=== PATIENT | female | born 1965 | race American Indian/Alaskan Native ===

== ENCOUNTER 2018-01-08 22:43 | Inpatient (IN) | payer SELFPAY ==
[2018-01-08] MEDS ORDERED: PROVENTIL IH ONE ×2 (23:39→23:53)
[2018-01-09 00:39] LABS: Basophils # (Auto) 0.1 K/mm3 (0.0-0.1); Eosinophils # (Auto) 0.2 K/mm3 (0.0-0.4); Eosinophils % (Auto) 2.6 % (0.0-4.3); Hematocrit 48.4 % (30.3-42.9); Hemoglobin 16.6 gm/dl (10.1-14.3); Lymphocytes # (Auto) 2.3 K/mm3 (1.2-5.4); Lymphocytes % (Auto) 28.4 % (13.4-35.0); Mean Corpuscular HGB Conc 34 % (30-34); Mean Corpuscular Hemoglobin 34 pg (28-32); Mean Corpuscular Volume 100 fl (79-97); Monocytes # (Auto) 0.4 K/mm3 (0.0-0.8); Monocytes % (Auto) 5.4 % (0.0-7.3); Red Blood Count 4.83 M/mm3 (3.65-5.03); Red Cell Distribution Width 14.3 % (13.2-15.2)
[2018-01-09] MEDS ORDERED: ATROVENT IH ONE (00:45)
[2018-01-09] MEDS ORDERED: PROVENTIL IH ONE ×2 (00:45→01:57)
[2018-01-09] MEDS ORDERED: DELTASONE PO ONE (00:46)
[2018-01-09 00:53] LABS: Platelet Count 172 K/mm3 (140-440)
--- NOTE | 2018-01-09 01:08 | Emergency Department Report ---
ED Shortness of Breath HPI - General Chief Complaint: Dyspnea/Respdistress Stated Complaint: SOB Time Seen by Provider: 01/09/18 00:35 Source: patient Mode of arrival: Ambulatory Limitations: No Limitations - History of Present Illness Initial Comments: 52-year-old female presents to the hospital complaining of cough productive cough intermittently wheezing or shortness of breath for the past 2 weeks. Patient denies underlying lung disorder such as asthma or COPD. History of bronchitis as a child. She smokes cigarettes on occasion. Patient is having a productive cough with sputum that is clear, brown, and bloody at times. She complains of anterior chest pain associated with coughing. No fever, calf tenderness or edema reported. Patient received albuterol 5 mg in the waiting wound with some improvement in her symptoms. - Related Data Allergies Allergy/AdvReac Type Severity Reaction Status Date / Time No Known Allergies Allergy Verified 01/09/18 00:00 ED Review of Systems ROS: Stated complaint: SOB Other details as noted in HPI Comment: All other systems reviewed and negative ED Past Medical Hx - Surgical History Additional Surgical History: Left Knee, C-sections X 2 - Social History Smoking Status: Current Every Day Smoker Substance Use Type: None ED Physical Exam - General Limitations: No Limitations - Other Other exam information: General: No limitations, patient is alert in no acute distress Head exam: Atraumatic, normocephalic Eyes exam: Normal appearance ENT: Moist mucous membrane, normal oropharynx Neck exam: Normal inspection, full range of motion, no meningismus nontender Respiratory exam: Bilateral expiratory wheezing, no tachypnea or accessory muscle use Cardiovascular: Mild tachycardia regular rhythm Abdomen: Soft, nondistended, and nontender, with normal bowel sounds, no rebound, or guarding Extremity: Full range of motion normal inspection no deformity, and is Back: Normal Inspection, full range of motion, no tenderness Neurologic: Alert, oriented x3, cranial nerves intact, no motor or sensory deficit Psychiatric: normal affect, normal mood Skin: Warm, dry, intact ED Course Vital Signs 01/08/18 01/08/18 01/09/18 22:43 23:40 00:34 Temperature 99.0 F 99 F 98.2 F Pulse Rate 121 H 116 H 103 H Pulse Rate [ Anterior Bilateral] Respiratory 18 16 18 Rate Respiratory Rate [Anterior Bilateral] Blood Pressure 151/109 151/109 Blood Pressure 115/87 [Left] O2 Sat by Pulse 97 97 95 Oximetry 01/09/18 01/09/18 01/09/18 00:40 01:54 02:08 Temperature Pulse Rate Pulse Rate [ 78 86 89 Anterior Bilateral] Respiratory Rate Respiratory 20 23 21 Rate [Anterior Bilateral] Blood Pressure Blood Pressure [Left] O2 Sat by Pulse Oximetry - Reevaluation(s) Reevaluation #1: 01/09/18 01:58 Patient received albuterol 2.5 mg in triage and addition of a 5 mg and Atrovent in the ED instead has actually worsening wheezing compared to initial auscultation. Patient also received prednisone 60 mg azithromycin by mouth. Will try magnesium and additional nebs and will reassess. Reevaluation #2: 01/09/18 03:40 despite additional treatment pt states she does not feel better, room are sat 92 -94%, mild wheeze persists. Will admit to the hospital for additional treatment ED Medical Decision Making - Lab Data Result diagrams: 01/09/18 00:16 01/09/18 00:16 Lab Results 01/09/18 Range/Units 00:16 WBC 7.9 (4.5-11.0) K/mm3 RBC 4.83 (3.65-5.03) M/mm3 Hgb 16.6 H (10.1-14.3) gm/dl Hct 48.4 H (30.3-42.9) % MCV 100 H (79-97) fl MCH 34 H (28-32) pg MCHC 34 (30-34) % RDW 14.3 (13.2-15.2) % Plt Count 172 (140-440) K/mm3 Lymph % (Auto) 28.4 (13.4-35.0) % [place] % (Auto) 5.4 (0.0-7.3) % Eos % (Auto) 2.6 (0.0-4.3) % Baso % (Auto) 1.0 (0.0-1.8) % Lymph # 2.3 (1.2-5.4) K/mm3 [place] # 0.4 (0.0-0.8) K/mm3 Eos # 0.2 (0.0-0.4) K/mm3 Baso # 0.1 (0.0-0.1) K/mm3 Seg Neutrophils % 62.6 (40.0-70.0) % Seg Neutrophils # 5.0 (1.8-7.7) K/mm3 - Radiology Data Radiology results: report reviewed HISTORY: Shortness of breath COMPARISON: No prior studies are available for comparison. FINDINGS: Heart: Normal. Mediastinum/Vessels: Normal. Lungs/Pleural space: Normal. Bony thorax: No acute osseous abnormality. Other: IMPRESSION: Normal examination. - Medical Decision Making Patient complains of wheezing, cough, with intermittent bloody sputum. Will admit to the hospital because she has continued wheezing and shortness of breath with decreased O2 saturation despite ED reatment. - Differential Diagnosis pneumonia, bronchitis, PE, CHF Critical Care Time: No Critical care attestation.: If time is entered above; I have spent that time in minutes in the direct care of this critically ill patient, excluding procedure time. ED Disposition Clinical Impression: Acute bronchitis, Wheezing, Hemoptysis Disposition: OP ADMIT IP TO THIS HOSP Is pt being admited?: Yes Condition: Stable Time of Disposition: 03:42 (Dr Dumont/hosp)
[2018-01-09 01:12] LABS: BUN/Creatinine Ratio 9; Blood Urea Nitrogen 7 mg/dL (7-17); Calcium 9.6 mg/dL (8.4-10.2); Hemolysis Index 0
[2018-01-09] MEDS ORDERED: ZITHROMAX PO ONE (01:41)
--- NOTE | 2018-01-09 01:43 | XRay Report ---
FINAL REPORT PROCEDURE: XR CHEST ROUTINE 2V TECHNIQUE: PA and lateral chest radiographs were obtained. CPT 97883 HISTORY: Shortness of breath COMPARISON: No prior studies are available for comparison. FINDINGS: Heart: Normal. Mediastinum/Vessels: Normal. Lungs/Pleural space: Normal. Bony thorax: No acute osseous abnormality. Other: IMPRESSION: Normal examination.
[2018-01-09] MEDS ORDERED: MAGNESIUM SULFATE 2GM/50ML 2 GM/50 ML BAG IV ONE (01:57)
[2018-01-09] MEDS ORDERED: ROBITUSSIN PO PRN (03:57)
[2018-01-09] MEDS ORDERED: PROVENTIL IH PRN ×2 (04:00→13:24)
[2018-01-09] MEDS ORDERED: TYLENOL PO PRN (04:01)
[2018-01-09] MEDS ORDERED: ZOFRAN IV PRN (04:02)
--- NOTE | 2018-01-09 05:05 | History and Physical Report ---
CHIEF COMPLAINT: Shortness of breath. OTHER COMPLAINT: Include cough and hemoptysis. HISTORY OF PRESENT ILLNESS: The patient is a 52-year-old female who said she has been having shortness of breath with wheezing going on for about 2-3 weeks and recently within the last 2-3 days, the patient started seeing tinge of blood in her sputum, but admitted having anterior chest discomfort when she coughs. There is no history of fever, no history of chills. No history of nausea and vomiting. The patient also denies history of dizziness and presented to the Emergency Room. PAST MEDICAL HISTORY: Unremarkable. PAST SURGICAL HISTORY: Pertinent for left knee surgery, twice. FAMILY HISTORY: Noncontributory. SOCIAL HISTORY: The patient smokes cigarettes daily, does not drink alcohol and does not use illicit drugs. MEDICATIONS: The patient's home medications are not known at this time. ALLERGIES: There are no known drug allergies. REVIEW OF SYSTEMS: CONSTITUTIONAL: There is no fever, no chills, no diaphoresis. HEENT: There is no headache or sore throat. CARDIOVASCULAR SYSTEM: Chest discomfort with coughing noted. No orthopnea. RESPIRATORY SYSTEM: Shortness of breath noted. Cough and hemoptysis noted. GASTROINTESTINAL SYSTEM: There is no nausea, no vomiting, no abdominal pain, diarrhea or constipation. NEUROLOGICAL SYSTEM: There is no numbness, no dizziness, and no altered mental status. MUSCULOSKELETAL SYSTEM: There is no joint pain or swelling. DERMATOLOGICAL SYSTEM: There is no skin rash or itching. GENITOURINARY SYSTEM: There is no dysuria, hematuria, or flank pain. Rest of system review is normal. PHYSICAL EXAMINATION: GENERAL: At the time of exam, the patient was found to be alert, oriented x 3, and not in acute distress. VITAL SIGNS: Vital signs at the time of initial presentation shows temperature of 99 degrees Fahrenheit, pulse of 121, respiration 18, blood pressure 151/109, O2 sat of 97% on room air. HEENT: Exam show pupils to be equal, round, and reactive to light and accommodation. Extraocular muscles are intact. NECK: Supple with no JVD or carotid bruit. CARDIOVASCULAR SYSTEM: Show normal first and second heart sounds with no gallops or murmurs. RESPIRATORY SYSTEM: Show good air entry on both sides of the lungs with respiratory wheezing. GASTROINTESTINAL SYSTEM: Show abdomen to be full, soft, and nontender, with no organomegaly or rigidity. NEUROLOGICAL: Exam shows no focal deficit. MUSCULOSKELETAL SYSTEM: Show no joint swelling or tenderness. DERMATOLOGICAL SYSTEM: Show no skin rash. GENITOURINARY: Showing no costovertebral angle tenderness. PERTINENT LABORATORY DATA: The patient had CBC done with normal white count, elevated hemoglobin of 16.6, and elevated hematocrit of 48.4, with elevated MCV of 100. The patient's chemistry was unremarkable. IMAGING STUDIES: The patient had chest x-ray done that shows normal examination. DIAGNOSES: 1. Acute bronchitis. 2. Hemoptysis. PLAN: 1. The patient will be admitted to [facility]. 2. The patient will have CT angiogram of the chest done in the morning. 3. The patient will be on albuterol nebulizer 2.5 mg every 6 hours as needed for shortness of breath. 4. The patient will be on ceftriaxone 1 g intravenous daily. 5. The patient will be on guaifenesin 200 mg by mouth every 6 hours as needed for cough. 6. The patient will be on intravenous Zofran 4 mg every 8 hours for nausea and vomiting. The patient's diet will be regular diet. 7. Deep venous thrombosis prophylaxis will be through sequential compressive device. JOB# [id number] OCN/NTS
[2018-01-09] MEDS ORDERED: BENADRYL IV ONE (07:21)
--- NOTE | 2018-01-09 07:42 | Cat Scan Report ---
FINAL REPORT EXAM: CT ANGIO CHEST HISTORY: HEMOPTYSIS TECHNIQUE: A CT angiogram was performed following the intravenous injection of 100 cc of Omnipaque 350. Rotational, sagittal, and coronal MIP reconstructions were reviewed. FINDINGS: The lungs are clear. Pleural fluid is not seen. There is no evidence of pulmonary embolus or aortic dissection. The thoracic aorta is normal in caliber. The heart size is normal. Pericardial effusion is not seen. There is no evidence of adenopathy. At the thoracic inlet the thyroid gland appears normal. The skeletal structures reveal minimal arthritic changes in the dorsal spine. There is a small hiatal hernia. The adrenal glands appear normal. IMPRESSION: No evidence of pulmonary embolus, aortic dissection, or vascular congestion. No acute process in the chest. Small hiatal hernia.
[2018-01-09] MEDS: ROCEPHIN/NS 1 GM/50 ML 1 GM/50 ML BAG IV SCH (13:00)
--- NOTE | 2018-01-09 13:32 | Progress Note ---
Assessment and Plan Assessment and plan: Patient is a 52 year old female with hx of Tobacco abuse, Hemoptysis and childhood bronchitis admitted with cough and wheezing with associated shortness of breath. Patient unfortunately continues to smoke and states that she plans to quit but has not set up date. On admission was started albuterol with some improvement noted. Asthmatic Bronchitis Hemoptysis Tobacco abuse Plan Continue supportive care Start on BRIDGETT, LABA No evidence of CTA on chest IV solumedrol and possible Discharge in Am if improved. DVT/GI prophy,. Abdomen is extra time extended-care service provided History Interval history: Patient seen and examined this morning with mild shortness of breath and respiratory acute distress still with wheezing. Hospitalist Physical - Physical exam Narrative exam: VITAL SIGNS: Reviewed. GENERAL: The patient appeared well nourished and normally developed. Vital signs as documented. HEAD: No signs of head trauma. EYES: Pupils are equal. Extraocular motions intact. EARS: Hearing grossly intact. MOUTH: Oropharynx is normal. NECK: No adenopathy, no JVD. CHEST: Chest with bilateral expiratory wheezes CARDIAC: Regular rate and rhythm. S1 and S2, without murmurs, gallops, or rubs. VASCULAR: No Edema. Peripheral pulses normal and equal in all extremities. ABDOMEN: Soft, without detectable tenderness. No sign of distention. No rebound or guarding, and no masses palpated. Bowel Sounds normal. MUSCULOSKELETAL: Good range of motion of all major joints. Extremities without clubbing, cyanosis or edema. NEUROLOGIC EXAM: Alert and oriented x 3. No focal sensory or strength deficits. Speech normal. Follows commands. PSYCHIATRIC: Mood normal. SKIN: No rash or lesions. - Constitutional Vitals: Temp Pulse Resp BP Pulse Ox 98.4 F 73 20 106/59 90 01/09/18 11:41 01/09/18 11:41 01/09/18 11:41 01/09/18 11:41 01/09/18 11:41 Results - Labs CBC & Chem 7: 01/09/18 00:16 01/09/18 00:16 Labs: Laboratory Last Values WBC 7.9 K/mm3 (4.5-11.0) 01/09/18 00:16 RBC 4.83 M/mm3 (3.65-5.03) 01/09/18 00:16 Hgb 16.6 gm/dl (10.1-14.3) H 01/09/18 00:16 Hct 48.4 % (30.3-42.9) H 01/09/18 00:16 MCV 100 fl (79-97) H 01/09/18 00:16 MCH 34 pg (28-32) H 01/09/18 00:16 MCHC 34 % (30-34) 01/09/18 00:16 RDW 14.3 % (13.2-15.2) 01/09/18 00:16 Plt Count 172 K/mm3 (140-440) 01/09/18 00:16 Lymph % (Auto) 28.4 % (13.4-35.0) 01/09/18 00:16 [place] % (Auto) 5.4 % (0.0-7.3) 01/09/18 00:16 Eos % (Auto) 2.6 % (0.0-4.3) 01/09/18 00:16 Baso % (Auto) 1.0 % (0.0-1.8) 01/09/18 00:16 Lymph # 2.3 K/mm3 (1.2-5.4) 01/09/18 00:16 [place] # 0.4 K/mm3 (0.0-0.8) 01/09/18 00:16 Eos # 0.2 K/mm3 (0.0-0.4) 01/09/18 00:16 Baso # 0.1 K/mm3 (0.0-0.1) 01/09/18 00:16 Seg Neutrophils % 62.6 % (40.0-70.0) 01/09/18 00:16 Seg Neutrophils # 5.0 K/mm3 (1.8-7.7) 01/09/18 00:16 Sodium 143 mmol/L (137-145) 01/09/18 00:16 Potassium 3.8 mmol/L (3.6-5.0) 01/09/18 00:16 Chloride 100.5 mmol/L (98-107) 01/09/18 00:16 Carbon Dioxide 26 mmol/L (22-30) 01/09/18 00:16 Anion Gap 20 mmol/L 01/09/18 00:16 BUN 7 mg/dL (7-17) 01/09/18 00:16 Creatinine 0.8 mg/dL (0.7-1.2) 01/09/18 00:16 Estimated GFR > 60 ml/min 01/09/18 00:16 BUN/Creatinine Ratio 9 % 01/09/18 00:16 Glucose 117 mg/dL (65-100) H 01/09/18 00:16 Calcium 9.6 mg/dL (8.4-10.2) 01/09/18 00:16 Troponin T < 0.010 ng/mL (0.00-0.029) 01/09/18 00:16 HCG, Qual Negative (Negative) 01/09/18 00:16 - Imaging and Cardiology Chest x-ray: image reviewed (no acute pathology)
[2018-01-09] MEDS: DUONEB *Not for PRN Use IH SCH ×2 (15:13→21:05)
[2018-01-09] MEDS: PULMICORT IH SCH (21:06)
[2018-01-09] MEDS: BROVANA NEBU IH SCH (21:08)
[2018-01-10] VITALS: BP 133/69
[2018-01-10] MEDS: DUONEB *Not for PRN Use IH SCH ×2 (06:59→08:27)
[2018-01-10] MEDS: BROVANA NEBU IH SCH (08:28)
[2018-01-10] MEDS: PULMICORT IH SCH (08:28)
[2018-01-10] MEDS: ROCEPHIN/NS 1 GM/50 ML 1 GM/50 ML BAG IV SCH (10:41)
--- NOTE | 2018-01-10 11:27 | Discharge Summary ---
Providers - Providers Date of Admission: 01/09/18 03:54 Attending physician: NIA SANDERS MD Primary care physician: CROCHET BEADER Hospitalization Reason for admission: ACUTE BRONCHITS Condition: Stable Hospital course: Patient is a 52 year old female with hx of Tobacco abuse, Hemoptysis and childhood bronchitis admitted with cough and wheezing with associated shortness of breath. Patient unfortunately continues to smoke and states that she plans to quit but has not set up date. On admission was started albuterol with steriods with some improvement noted and continue to improve by day 2 leading to discharge. Patient was given significant counselling about tobacco cessation and she verbalized understanding. Asthmatic Bronchitis Hemoptysis Tobacco abuse Disposition: DC- TO HOME OR SELFCARE Time spent for discharge: 35 MINS Core Measure Documentation - Palliative Care Palliative Care/ Comfort Measures: Not Applicable - Core Measures Any of the following diagnoses?: none - VTE Discharge Requirements Deep Vein Thrombosis/Pulmonary Embolism Present on Admission: No Exam - Physical Exam Narrative exam: VITAL SIGNS: Reviewed. GENERAL: The patient appeared well nourished and normally developed. Vital signs as documented. HEAD: No signs of head trauma. EYES: Pupils are equal. Extraocular motions intact. EARS: Hearing grossly intact. MOUTH: Oropharynx is normal. NECK: No adenopathy, no JVD. CHEST: Chest with CLEAR BILATERAL CARDIAC: Regular rate and rhythm. S1 and S2, without murmurs, gallops, or rubs. VASCULAR: No Edema. Peripheral pulses normal and equal in all extremities. ABDOMEN: Soft, without detectable tenderness. No sign of distention. No rebound or guarding, and no masses palpated. Bowel Sounds normal. MUSCULOSKELETAL: Good range of motion of all major joints. Extremities without clubbing, cyanosis or edema. NEUROLOGIC EXAM: Alert and oriented x 3. No focal sensory or strength deficits. Speech normal. Follows commands. PSYCHIATRIC: Mood normal. SKIN: No rash or lesions. - Constitutional Vitals: Temp Pulse Resp BP Pulse Ox 98.4 F 89 20 133/69 98 01/09/18 22:35 01/09/18 22:35 01/09/18 22:35 01/09/18 22:35 01/09/18 22:35 Plan Activity: advance as tolerated, fall precautions Diet: low cholesterol Special Instructions: record daily weights, smoking cessation Follow up with: PRIMARY CAREMD [Primary Care Provider] - 7 Days Prescriptions: ALBUTEROL Inhaler [ProAir HFA Inhaler] 2 puff IH QID PRN #1 inhalation PRN Reason: Shortness Of Breath Ipratropium/Albuterol Sulfate [DUONEB *Not for PRN Use*] 1 ampul IH Q8H #90 ampul.neb Levofloxacin [Levaquin TAB] 500 mg PO QDAY #5 tablet Loratadine [Claritin] 10 mg PO DAILY #14 tablet Prednisone [predniSONE 5 mg (6-Day Pack, 21 Tabs)] 5 mg PO .TAPER #1 tab.ds.pk
== END 2018-01-10 14:19 | disposition home or self-care (01) | DRG 202 ==
LOC: ED 22:43 → 3A 01-09 03:54
PROVIDERS: ADMIT Internal Medicine; ATTEND Internal Medicine
DX: J20.9 Acute bronchitis, unspecified (principal); R04.2 Hemoptysis; F17.210 Nicotine dependence, cigarettes, uncomplicated; Z71.6 Tobacco abuse counseling
CPT/HCPCS: 36415; 71046; 71275; 80048; 84484; 84703; 85025; 87040; 93005; 93010; 94640; 94644; 96367; 96374; 96375; 99406; J0696; J1200; J2930; J3475; J7512; Q9967

== ENCOUNTER 2018-11-13 12:31 | Emergency (ER) | payer OTHER ==
[2018-11-13] MEDS ORDERED: ASPIRIN PO ONE (13:19)
--- NOTE | 2018-11-13 13:19 | Emergency Department Report ---
Chief Complaint: Skin/Abscess/Foreign Body Stated Complaint: CHEST PAIN/SKIN ENLARGED Time Seen by Provider: 11/13/18 13:16 - HPI History of Present Illness: This is a 52 y.o. F that presents to the ER with chest pain since yesterday. She also reports a mold to right inner thigh that is about to detach. PMH: COPD - Exam Vital Signs: Vital Signs 11/13/18 13:16 Temperature 98.3 F Pulse Rate 88 Respiratory 16 Rate Blood Pressure 130/87 [Right] O2 Sat by Pulse 96 Oximetry MSE screening note: Focused history and physical exam performed. Due to findings the following was ordered: labs, ekg, and cxr ED Disposition for MSE Condition: Stable
--- NOTE | 2018-11-13 14:00 | XRay Report ---
ROUTINE CHEST, TWO VIEWS: HISTORY: chest pain. The trachea, heart, mediastinal contour, lung arteaga and bony thorax are unremarkable. IMPRESSION: Unremarkable chest x-ray.
[2018-11-13 14:06] LABS: Basophils % (Auto) 0.6 % (0.0-1.8); Eosinophils # (Auto) 0.4 K/mm3 (0.0-0.4); Eosinophils % (Auto) 5.1 % (0.0-4.3); Hematocrit 43.9 % (30.3-42.9); Hemoglobin 14.8 gm/dl (10.1-14.3); Lymphocytes # (Auto) 2.9 K/mm3 (1.2-5.4); Lymphocytes % (Auto) 37.1 % (13.4-35.0); Mean Corpuscular HGB Conc 34 % (30-34); Mean Corpuscular Volume 102 fl (79-97); Monocytes # (Auto) 0.7 K/mm3 (0.0-0.8); Monocytes % (Auto) 9.6 % (0.0-7.3); Red Blood Count 4.31 M/mm3 (3.65-5.03); Red Cell Distribution Width 14.1 % (13.2-15.2)
[2018-11-13 14:28] LABS: BUN/Creatinine Ratio 13; Blood Urea Nitrogen 10 mg/dL (7-17); Calcium 9.5 mg/dL (8.4-10.2); Hemolysis Index 13
[2018-11-13] MEDS ORDERED: NORCO 5/325 PO ONE (14:46)
[2018-11-13] MEDS ORDERED: CLEOCIN PO ONE (14:46)
[2018-11-13 14:47] LABS: Platelet Count 196 K/mm3 (140-440)
--- NOTE | 2018-11-13 15:03 | Emergency Department Report ---
ED General Adult HPI - General Chief complaint: Skin/Abscess/Foreign Body Stated complaint: CHEST PAIN/SKIN ENLARGED Time Seen by Provider: 11/13/18 13:16 Source: patient Mode of arrival: Ambulatory Limitations: No Limitations - History of Present Illness Initial comments: Patient is a 52-year-old [place] female who is presenting with 2 problems. Issue #1 patient states she's had chest discomfort since yesterday. Patient states this is worse with coughing. The patient has a history of COPD and her cough is increased over the last 2-3 days. Patient states soreness and 510 in severity. Patient's cough is nonproductive. Denies any wheezing but does state that she has some mild shortness of breath. Shortness of breath is not exertional. Other issue the patient is presenting with is a large skin tag on her right thigh that she would like to have removed. Patient states this is very painful and she feels as though it's about to fall off. Severity scale (0 -10): 9 - Related Data Previous Rx's Medication Instructions Recorded Last Taken Type ALBUTEROL Inhaler (OR & NICU) 2 puff IH QID PRN #1 inhalation 01/10/18 Unknown Rx [ProAir HFA Inhaler] Ipratropium/Albuterol Sulfate 1 ampul IH Q8H #90 ampul.neb 01/10/18 Unknown Rx [DUONEB *Not for PRN Use*] Loratadine [Claritin] 10 mg PO DAILY #14 tablet 01/10/18 Unknown Rx Prednisone [predniSONE 5 mg (6-Day 5 mg PO .TAPER #1 tab.ds.pk 01/10/18 Unknown Rx Pack, 21 Tabs)] levoFLOXacin [Levaquin TAB] 500 mg PO QDAY #5 tablet 01/10/18 Unknown Rx Amoxicillin/Potassium Clav 1 each PO BID #14 tablet 11/13/18 Unknown Rx [Augmentin 875-125 Tablet] Benzonatate [Tessalon Perles] 100 mg PO Q8HR #10 capsule 11/13/18 Unknown Rx HYDROcodone/APAP 5-325 [[place] 1 each PO Q6HR PRN #14 tablet 11/13/18 Unknown Rx 5/325] Ibuprofen [Motrin 600 MG tab] 600 mg PO Q8H PRN #20 tablet 11/13/18 Unknown Rx predniSONE [Deltasone] 20 mg PO QDAY #5 tab 11/13/18 Unknown Rx Allergies Allergy/AdvReac Type Severity Reaction Status Date / Time Iodinated Contrast- Oral and Allergy Itching Verified 11/13/18 12:33 IV Dye ED Review of Systems ROS: Stated complaint: CHEST PAIN/SKIN ENLARGED Other details as noted in HPI Comment: All other systems reviewed and negative ED Past Medical Hx - Past Medical History Hx Hypertension: No - Surgical History Additional Surgical History: Left Knee, C-sections X 2 - Social History Smoking Status: Former Smoker Substance Use Type: Alcohol - Medications Home Medications: Home Medications Medication Instructions Recorded Confirmed Last Taken Type ALBUTEROL Inhaler (OR & NICU) 2 puff IH QID PRN #1 inhalation 01/10/18 Unknown Rx [ProAir HFA Inhaler] Ipratropium/Albuterol Sulfate 1 ampul IH Q8H #90 ampul.neb 01/10/18 Unknown Rx [DUONEB *Not for PRN Use*] Loratadine [Claritin] 10 mg PO DAILY #14 tablet 01/10/18 Unknown Rx Prednisone [predniSONE 5 mg (6-Day 5 mg PO .TAPER #1 tab.ds.pk 01/10/18 Unknown Rx Pack, 21 Tabs)] levoFLOXacin [Levaquin TAB] 500 mg PO QDAY #5 tablet 01/10/18 Unknown Rx Amoxicillin/Potassium Clav 1 each PO BID #14 tablet 11/13/18 Unknown Rx [Augmentin 875-125 Tablet] Benzonatate [Tessalon Perles] 100 mg PO Q8HR #10 capsule 11/13/18 Unknown Rx HYDROcodone/APAP 5-325 [[place] 1 each PO Q6HR PRN #14 tablet 11/13/18 Unknown Rx 5/325] Ibuprofen [Motrin 600 MG tab] 600 mg PO Q8H PRN #20 tablet 11/13/18 Unknown Rx predniSONE [Deltasone] 20 mg PO QDAY #5 tab 11/13/18 Unknown Rx ED Physical Exam - General Limitations: No Limitations General appearance: alert, in no apparent distress - Head Head exam: Present: atraumatic, normocephalic - Eye Eye exam: Present: normal appearance, PERRL, EOMI - ENT ENT exam: Present: mucous membranes moist - Neck Neck exam: Present: normal inspection - Respiratory Respiratory exam: Present: normal lung sounds bilaterally. Absent: respiratory distress, wheezes, rales, rhonchi - Cardiovascular Cardiovascular Exam: Present: regular rate, normal rhythm. Absent: systolic murmur, diastolic murmur, rubs, gallop - GI/Abdominal GI/Abdominal exam: Present: soft, normal bowel sounds. Absent: distended, tenderness, guarding, rebound - Extremities Exam Extremities exam: Present: normal inspection - Back Exam Back exam: Present: normal inspection - Neurological Exam Neurological exam: Present: alert, oriented X3 - Psychiatric Psychiatric exam: Present: normal affect, normal mood - Skin Skin exam: Present: warm, dry, intact, normal color, other (patient has a large ping-pong ball sized skin tag on her right anterior proximal thigh. At the area of his connected to her actual leg there is some mild erosion on one side and an open wound that has a foul odor. There is mild surrounding erythema. Also around the pedestal of the skin tag is a piece of yellow stirring it appears to have been wrapped around. This is tied in a simple knot). Absent: rash ED Course Vital Signs 11/13/18 11/13/18 13:16 14:54 Temperature 98.3 F Pulse Rate 88 Respiratory 16 22 Rate Blood Pressure 130/87 [Right] O2 Sat by Pulse 96 Oximetry ED Medical Decision Making - Lab Data Result diagrams: 11/13/18 13:47 11/13/18 13:47 Lab Results 11/13/18 11/13/18 Range/Units 13:47 13:47 WBC 7.8 (4.5-11.0) K/mm3 RBC 4.31 (3.65-5.03) M/mm3 Hgb 14.8 H (10.1-14.3) gm/dl Hct 43.9 H (30.3-42.9) % MCV 102 H (79-97) fl MCH 34 H (28-32) pg MCHC 34 (30-34) % RDW 14.1 (13.2-15.2) % Plt Count 196 (140-440) K/mm3 Lymph % (Auto) 37.1 H (13.4-35.0) % Rhea % (Auto) 9.6 H (0.0-7.3) % Eos % (Auto) 5.1 H (0.0-4.3) % Baso % (Auto) 0.6 (0.0-1.8) % Lymph # 2.9 (1.2-5.4) K/mm3 Rhea # 0.7 (0.0-0.8) K/mm3 Eos # 0.4 (0.0-0.4) K/mm3 Baso # 0.0 (0.0-0.1) K/mm3 Seg Neutrophils % 47.6 (40.0-70.0) % Seg Neutrophils # 3.7 (1.8-7.7) K/mm3 Sodium 140 (137-145) mmol/L Potassium 3.4 L (3.6-5.0) mmol/L Chloride 100.9 (98-107) mmol/L Carbon Dioxide 26 (22-30) mmol/L Anion Gap 17 mmol/L BUN 10 (7-17) mg/dL Creatinine 0.8 (0.7-1.2) mg/dL Estimated GFR > 60 ml/min BUN/Creatinine Ratio 13 % Glucose 142 H (65-100) mg/dL Calcium 9.5 (8.4-10.2) mg/dL Troponin T < 0.010 (0.00-0.029) ng/mL - EKG Data -: EKG Interpreted by Me EKG shows normal: sinus rhythm, axis, intervals, QRS complexes, ST-T waves Rate: normal - EKG Data Interpretation: normal EKG - Radiology Data Radiology results: report reviewed (CXR within normal limits) - Medical Decision Making I was able to use a hemostat and removed the string that is recommended testicle the skin tag. The patient has a superficial infection from the string. Patient states she doesn't know how string got there and may be just got caught. This string was tied in a simple knot I do believe that the patient places string and attempt to try to remove the skin tag. Patient is very upset when we stated that we did not remove skin tags routine from the emergency department and it would likely be unsafe to remove the skin tag currently secondary to there being a localized infection. Patient will be given follow-up with a hospital intern. Regarding the patient's chest discomfort likely secondary to her cough. Chest x-ray is within normal limits does not show pneumonia. Patient does have a history of COPD chronic bronchitis. Patient with a acute exacerbation of her chronic bronchitis and will be started on medications for symptomatic relief as well as a short course of antibiotics. Critical care attestation.: If time is entered above; I have spent that time in minutes in the direct care of this critically ill patient, excluding procedure time. ED Disposition Clinical Impression: Skin infection, Acute exacerbation of chronic bronchitis, Atypical chest pain Disposition: TO HOME OR SELFCARE Is pt being admited?: No Does the pt Need Aspirin: No Condition: Stable Instructions: Acute Bronchitis (ED), Chest Pain (ED), Wound Infection (ED) Referrals: HETAL LYLES MD [Staff Physician] - 3-5 Days Time of Disposition: 15:10
[2018-11-13 15:50] VITALS: BP 126/74
== END 2018-11-13 15:49 | disposition home or self-care (01) ==
LOC: ED 12:31
DX: J44.1 Chronic obstructive pulmonary disease with (acute) exacerbation (principal); L98.9 Disorder of the skin and subcutaneous tissue, unspecified; Z91.041 Radiographic dye allergy status; Z87.891 Personal history of nicotine dependence; Z79.899 Other long term (current) drug therapy
CPT/HCPCS: 36415; 71046; 80048; 84484; 85025; 93005; 93010

== ENCOUNTER 2019-01-13 18:22 | Emergency (ER) | payer SELFPAY ==
[2019-01-13 19:04] LABS: Basophils # (Auto) 0.1 K/mm3 (0.0-0.1); Basophils % (Auto) 1.3 % (0.0-1.8); Eosinophils # (Auto) 0.4 K/mm3 (0.0-0.4); Eosinophils % (Auto) 4.9 % (0.0-4.3); Hematocrit 46.2 % (30.3-42.9); Hemoglobin 15.4 gm/dl (10.1-14.3); Lymphocytes # (Auto) 2.3 K/mm3 (1.2-5.4); Lymphocytes % (Auto) 31.6 % (13.4-35.0); Mean Corpuscular HGB Conc 33 % (30-34); Mean Corpuscular Volume 102 fl (79-97); Monocytes # (Auto) 0.6 K/mm3 (0.0-0.8); Monocytes % (Auto) 8.3 % (0.0-7.3); Red Blood Count 4.53 M/mm3 (3.65-5.03)
[2019-01-13 19:21] LABS: BUN/Creatinine Ratio 15; Blood Urea Nitrogen 12 mg/dL (7-17); Calcium 9.3 mg/dL (8.4-10.2); Hemolysis Index 38
[2019-01-13 19:44] LABS: Platelet Count 173 K/mm3 (140-440)
--- NOTE | 2019-01-13 20:21 | Emergency Department Report ---
ED Psych HPI - General Chief Complaint: Psych Stated Complaint: 1013 Time Seen by Provider: 01/13/19 20:04 Source: patient, police Mode of arrival: Ambulatory - History of Present Illness Initial Comments: 53-year-old who presents to ED escorted by police for suicidal ideations. Patient's picture herself with a gun to family members. Patient says she does not really want to kill herself, she only wanted attention from her sisters. Patient states it is almost the anniversaries of her both her mother and brother's deaths. Patient reports feeling depressed and overwhelmed because of this. Patient denies any drug use, reports alcohol use. Denies any previous history of psychiatric diagnoses. MD Complaint: feels depressed -: days(s) (1) Associated Psychiatric Symptoms: depression, suicidal ideation Quality: resolved prior to arrival Improves With: none Worsens With: none Context: significant life stressor Associated Symptoms: denies other symptoms If Self Harm: has plan - Related Data Home Medications Medication Instructions Recorded Confirmed Last Taken ALBUTEROL NEB's [Proventil] 2.5 mg IH TID PRN 01/13/19 01/13/19 Unknown Ipratropium [Atrovent] 0.5 mg IH Q4HR 01/13/19 01/13/19 Unknown Allergies Allergy/AdvReac Type Severity Reaction Status Date / Time Iodinated Contrast- Oral and Allergy Itching Verified 11/13/18 12:33 IV Dye ED Review of Systems ROS: Stated complaint: 1013 Other details as noted in HPI Comment: All other systems reviewed and negative Psychiatric: depression. denies: visual hallucinations, homicidal thoughts, suicidal thoughts ED Past Medical Hx - Past Medical History Hx Hypertension: No Hx Arthritis: Yes Hx COPD: Yes - Surgical History Additional Surgical History: Left Knee, C-sections X 2 - Social History Smoking Status: Current Every Day Smoker Substance Use Type: Alcohol - Medications Home Medications: Home Medications Medication Instructions Recorded Confirmed Last Taken Type ALBUTEROL NEB's [Proventil] 2.5 mg IH TID PRN 01/13/19 01/13/19 Unknown History Ipratropium [Atrovent] 0.5 mg IH Q4HR 01/13/19 01/13/19 Unknown History ED Physical Exam - General Limitations: No Limitations General appearance: alert, in no apparent distress - Head Head exam: Present: atraumatic, normocephalic - Eye Eye exam: Present: normal appearance - ENT ENT exam: Present: mucous membranes moist - Neck Neck exam: Present: normal inspection - Respiratory Respiratory exam: Present: normal lung sounds bilaterally. Absent: respiratory distress - Cardiovascular Cardiovascular Exam: Present: normal rhythm, tachycardia - GI/Abdominal GI/Abdominal exam: Absent: distended - Extremities Exam Extremities exam: Present: normal inspection - Neurological Exam Neurological exam: Present: alert, oriented X3 - Psychiatric Psychiatric exam: Present: depressed. Absent: homicidal ideation, suicidal ideation - Skin Skin exam: Present: warm, dry, intact, normal color ED Course Vital Signs 01/13/19 01/13/19 18:34 18:49 Temperature 98.2 F 98.8 F Pulse Rate 103 H 101 H Respiratory 20 20 Rate Blood Pressure 160/111 [Left] Blood Pressure 177/105 161/98 [Right] O2 Sat by Pulse 98 95 Oximetry ED Medical Decision Making - Lab Data Result diagrams: 01/13/19 18:49 01/13/19 18:49 - Medical Decision Making 53 yo F w/ no past psychiatric history presents to ED after sending a picture of herself with a gun in her mouth to family members. Pt denies suicidal ideation, states she just wanted attention from her sisters. Pt placed on a 1013. Labs are unremarkable other than UDS positive for cocaine. Pt is medically clear for mental health evaluation. Will dispo per psych. Critical care attestation.: If time is entered above; I have spent that time in minutes in the direct care of this critically ill patient, excluding procedure time. ED Disposition Clinical Impression: Suicide gesture, Cocaine abuse Disposition: [id number] PSY HOSP/PSY UNIT Is pt being admited?: No Condition: Stable
[2019-01-13 21:55] LABS: Amphetamine Screen,Urine PRESUMPTIVE NEGATIVE; Benzodiazepines Screen,Urine PRESUMPTIVE NEGATIVE; Cannabinoid Screen,Urine PRESUMPTIVE NEGATIVE; Methadone Screen,Urine PRESUMPTIVE NEGATIVE; Opiate Screen,Urine PRESUMPTIVE NEGATIVE
[2019-01-13 22:00] LABS: Bilirubin,Urine NEG (Negative); Blood,Urine SM (Negative); Color,Urine Yellow (Yellow); Mucus,Urine FEW /HPF; Protein,Urine <15 mg/dL mg/dL (Negative); Urobilinogen,Urine < 2.0 mg/dL (<2.0)
[2019-01-13] MEDS: PROVENTIL IH PRN (22:14)
[2019-01-13 22:16] LABS: Cocaine Screen,Urine PRESUMPTIVE POSITIVE
[2019-01-14] MEDS: ATROVENT IH SCH ×2 (00:10→03:51)
[2019-01-14] MEDS ORDERED: ATROVENT IH PRN (07:00)
[2019-01-14] MEDS: PROVENTIL IH PRN ×2 (08:56→16:53)
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
[2019-01-15] MEDS: ZOLOFT PO SCH (10:50)
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
[2019-01-15 14:10] LABS: HCG Qualitative,Urine Negative (Negative)
--- NOTE | 2019-01-16 09:10 | Progress Note ---
Subjective - Reason for Consult Consult date: 01/16/19 Reason for consult: Psychiatry Follow-up - Chief Complaint Chief complaint: " I should have known better" 53 year old female who presents to the emergency room escorted by police for suicidal ideations. Today the patient was calm and cooperative during the assessment. She stated that she regret her actions prior to coming to the ER. She stated that her life have been hard "overall." She denies SI/HI's and AVH's. She denies any side effects of her medication. Mental Status Exam - Vital signs Last Vital Signs Temp 98.2 F 01/16/19 07:00 Pulse 76 01/16/19 07:00 Resp 18 01/16/19 07:00 BP 141/98 01/16/19 07:00 Pulse Ox 96 01/16/19 07:00 - Exam Narrative exam: MSE: Appearance: calm, cooperative Behavior: regular eye contact Speech: regular rate and tone Mood: "okay" Affect: congruent to mood Thought Process: circumstantial Thought Content: denies SI/HI's and AVH's Motor Activity: sitting up in bed Cognition: A/O x3 Insight: fair Judgment: variable Assessment and Plan Impression: MDD. Complicated grieving. Substance Use DO 9cocaine). Today the patient was calm and cooperative during the assessment. DDx: Substance Induced Mood DO, PTSD Recommendation/Plan: Continue 1013 and Zoloft 50 mg PO daily fro depression. Discussed possible suicidality/medication induced char with the patient reference Zoloft, she verbalized understanding. Dispo: The patient was referred to inpatient psy services. Will staff with Dr Mally Rod.
[2019-01-16] MEDS: ZOLOFT PO SCH (10:58)
[2019-01-16 14:55] VITALS: BP 126/66
== END 2019-01-16 16:52 ==
LOC: ED 18:22 → EEVIPCON 18:22 → ED 01-16 16:52
DX: F32.9 Major depressive disorder, single episode, unspecified (principal); R45.851 Suicidal ideations; M19.90 Unspecified osteoarthritis, unspecified site; J44.9 Chronic obstructive pulmonary disease, unspecified; F17.200 Nicotine dependence, unspecified, uncomplicated
CPT/HCPCS: 36415; 80048; 80307; 80320; 81001; 81025; 85025; G0480

== ENCOUNTER 2021-05-18 09:01 | Outpatient (CLI) | payer OTHER ==
--- NOTE | 2021-05-18 10:40 | XRay Report ---
CHEST 2 VIEWS INDICATION: Z02.71. Chronic obstructive pulmonary disease. COMPARISON: 11/13/2018 FINDINGS: Support devices: None. Heart: Within normal limits. Lungs/pleura: No acute air space or interstitial disease. No pneumothorax. Additional findings: None. IMPRESSION: Unremarkable chest films. Signer Name: Jarvis Gallegos Jr, MD Signed: 05/18/2021 10:36 AM Workstation Name: [id number]
== END 2021-05-18 09:02 | disposition home or self-care (01) ==
LOC: PF 09:01
PROVIDERS: ATTEND Internal Medicine
DX: Z02.71 Encounter for disability determination (principal); J44.9 Chronic obstructive pulmonary disease, unspecified
CPT/HCPCS: 71046; 94060